=== PATIENT | male | born 1960 | race Caucasian/White ===

== ENCOUNTER 2022-05-10 16:45 | Emergency (ER) | payer MEDICARE, MEDICAID ==
[~2022-05-10] VITALS: Ht 177 cm; Wt 87.0 kg
--- NOTE | 2022-05-10 17:49 | ED General ---
General Chief Complaint: Cough/Cold/Flu Symptoms Stated Complaint: CONGESTION/WATERY EYES/RUNNY NOSE/COUGH Nursing Triage Note: PT STATES HAS COUGH, CONGESTION, RUNNY NOSE, STARTED 3 DAYS AGO, SCRATCHY THROAT Source of Information: Patient Exam Limitations: No Limitations (JOSEPH LEIJA APRN) History of Present Illness Date Seen by Provider: May 10, 2022 Time Seen by Provider: 16:55 Initial Comments Patient is a 61-year-old male who presents to the emergency department for evaluation of approximately 3 days of cough, nasal congestion, rhinorrhea, and " scratchy throat". Patient denies any recent fever, nausea/vomiting, diarrhea, chest pain, shortness of air. He has not been taking any medications for the symptoms. States he has had recent exposures to people who have tested positive for COVID and flu. (JOSEPH LEIJA APRN) Allergies and Home Medications Patient Home Medication List Home Medication List Reviewed: Yes (JOSEPH LEIJA APRN) Review of Systems Review of Systems Constitutional: no symptoms reported EENTM: see HPI, nose congestion Respiratory: see HPI, cough Cardiovascular: no symptoms reported Gastrointestinal: no symptoms reported Genitourinary: no symptoms reported Musculoskeletal: no symptoms reported Skin: no symptoms reported Psychiatric/Neurological: No Symptoms Reported Hematologic/Lymphatic: No Symptoms Reported Immunological/Allergic: no symptoms reported (JOSEPH LEIJA APRN) Past Oulghop-Typuuq-Xozsou Hx Patient Social History Tobacco Use?: No Use of E-Cig and/or Vaping dev: Yes Use of E-Cig and/or Vaping Amado: Current Everyday User Substance use?: Yes Substance type: Methamphetamine Substance frequency: Once in a while Alcohol Use?: No Pt feels they are or have been: No (JOSEPH LEIJA APRN) Immunizations Up To Date Influenza Vaccine Up-to-Date: No; Not Current First/Initial COVID19 Vaccinat: NO (JOSEPH LEIJA APRN) Past Medical History Surgery/Hospitalization HX: NECK SURG, CHRONIC BACK PAIN (JOSEPH LEIJA APRN) Physical Exam Vital Signs Vital Signs - First Documented 05/10/22 05/10/22 16:54 17:10 Temp 36.9 Pulse 109 Resp 18 B/P (MAP) 112/79 (90) Pulse Ox 97 O2 Delivery Room Air (CHAPARRO CROWDER MD) Vital Signs Capillary Refill : Less Than 3 Seconds (JOSEPH LEIJA APRN) Height, Weight, BMI Height: '" Weight: lbs. oz. kg; 27.00 BMI Method: General Appearance: No Apparent Distress, WD/WN HEENT: PERRL/EOMI, TMs Normal, Normal ENT Inspection, Pharynx Normal Neck: Full Range of Motion, Normal Inspection, Non Tender, Supple Respiratory: Chest Non Tender, Lungs Clear, Normal Breath Sounds, No Accessory Muscle Use, No Respiratory Distress Cardiovascular: Regular Rate, Rhythm Gastrointestinal: Non Tender, Soft Neurologic/Psychiatric: Alert, Oriented x3, No Motor/Sensory Deficits, Normal Mood/Affect, rural carrier II-XII Norm as Tested Skin: Normal Color, Warm/Dry (JOSEPH LEIJA APRN) Progress/Results/Core Measures Suspected Sepsis SIRS Temperature: Pulse: 109 Respiratory Rate: 18 Blood Pressure 112 /79 Mean: 90 (JOSEPH LEIJA APRN) Results/Orders Lab Results Laboratory Tests Test 05/10/22 17:14 Range/Units Influenza Type A (RT-PCR) Not Detected Not Detecte Influenza Type B (RT-PCR) Not Detected Not Detecte SARS-CoV-2 RNA (RT-PCR) Not Detected Not Detecte (CHAPARRO CROWDER MD) Vital Signs/I&O 05/10/22 05/10/22 05/10/22 16:54 17:10 17:50 Temp 36.9 36.9 Pulse 109 109 Resp 18 18 B/P (MAP) 112/79 (90) 112/79 Pulse Ox 97 97 O2 Delivery Room Air Room Air (CHAPARRO CROWDER MD) Vital Signs/I&O Capillary Refill : Less Than 3 Seconds (JOSEPH LEIJA APRN) Blood Pressure Mean: 90 Progress Note : Progress Note Patient is nontoxic and well-hydrated on exam. No adventitious lung sounds or increased work of breathing noted. Vital signs are reassuring. No nuchal rigidity appreciated. Patient was ambulatory to the room without issue. Rapid flu and COVID ordered but patient requested to leave prior to them resulting. He states he had to leave due to his ride having to return home. Patient has remained very stable in the department. No obvious nidus of bacterial infection noted on exam. Viral etiology likely. Follow-up with PCP. Return precautions for urgent symptomology discussed. Patient verbalized understanding. (JOSEPH LEIJA APRN) Departure Impression Primary Impression: Acute viral syndrome Disposition: 01 HOME, SELF-CARE Condition: Stable Departure-Patient Inst. Decision time for Depature: 17:45 (JOSEPH LEIJA APRN) Referrals: [facility] – [place] (PCP/Family) Primary Care Physician Patient Instructions: Viral Syndrome (DC) ATTENDING PHYSICIAN NOTE: I was physically present as attending physician in the emergency department during the care of this patient, but I was not directly involved in the decision making or delivery of care for this patient. (CHAPARRO CROWDER MD) JOSEPH LEIJA APRN May 10, 2022 17:49 CHAPARRO CROWDER MD May 12, 2022 07:25
[2022-05-10 17:50] VITALS: BP 112/79
== END 2022-05-10 17:51 | disposition home or self-care (01) ==
LOC: EDUNIT# 16:45 → ER 16:49
DX: B34.9 Viral infection, unspecified (principal); R05.9 Cough, unspecified; R09.81 Nasal congestion; J34.89 Other specified disorders of nose and nasal sinuses; F17.290 Nicotine dependence, other tobacco product, uncomplicated; Z20.822 Contact with and (suspected) exposure to COVID-19
CPT/HCPCS: 87636; 99283